=== PATIENT | male | born 2000 | race American Indian/Alaskan Native ===

== ENCOUNTER 2020-11-11 09:02 | Emergency (ER) | payer OTHER ==
--- NOTE | 2020-11-11 09:32 | XRay Report ---
CHEST 2 VIEWS INDICATION / CLINICAL INFORMATION: Chest Pain. COMPARISON: None available. FINDINGS: SUPPORT DEVICES: None. HEART / MEDIASTINUM: No significant abnormality. LUNGS / PLEURA: No significant pulmonary or pleural abnormality. No pneumothorax. ADDITIONAL FINDINGS: No significant additional findings. IMPRESSION: 1. No acute findings. Signer Name: Sukhdeep Jim MD Signed: 11/11/2020 9:28 AM Workstation Name: [id number]
--- NOTE | 2020-11-11 10:41 | Emergency Department Report ---
ED Chest Pain HPI - General Chief Complaint: Chest Pain Stated Complaint: CHEST PAIN Time Seen by Provider: 11/11/20 09:56 Source: patient Mode of arrival: Ambulatory Limitations: No Limitations - History of Present Illness Initial Comments: This is a 20-year-old male nontoxic, well nourished in appearance, no acute signs of distress presents to the ED with c/o of heart palpitations that occurred earlier today. Patient stated that while he was playing video games started to have heart palpitation. Patient denies any chest pain. Currently patient stated he is asymptomatic. Patient denies any upper respiratory symptoms. Patient denies any shortness of breath, hemoptysis, fever, chills, nausea, vomiting, headache, stiff neck, numbness, tingling, abdominal pain. Patient denies pleuritic chest pain. Patient denies any recent travels or long car rides. Patient denies any recent surgeries or any sick contacts. Patient denies any drug allergies or significant past medical history. -: This morning Pain Radiation: none Severity scale (0 -10): 0 Consistency: now resolved Improves With: nothing Worsens With: nothing re: denies: nausea, vomting, diaphoresis, dyspnea, sense of impending doom Other Symptoms: palpitations. denies: cough, fever, syncope, rash, acid taste in mouth, leg swelling, burping Treatments Prior to Arrival: none Aspirin use within the Past 7 Days: (0) No - Related Data Allergies Allergy/AdvReac Type Severity Reaction Status Date / Time No Known Allergies Allergy Unverified 11/11/20 09:06 Heart Score - HEART Score History: Slightly suspicious EKG: Normal Age: < 45 Risk factors: No known risk factors Troponin: < normal limit HEART Score: 0 ED Review of Systems ROS: Stated complaint: CHEST PAIN Other details as noted in HPI Comment: All other systems reviewed and negative Constitutional: denies: chills, fever Eyes: denies: eye pain, eye discharge, vision change ENT: denies: ear pain, throat pain Respiratory: denies: cough, shortness of breath, wheezing Cardiovascular: denies: chest pain, palpitations Endocrine: no symptoms reported Gastrointestinal: denies: abdominal pain, nausea, diarrhea Genitourinary: denies: urgency, dysuria Musculoskeletal: denies: back pain, joint swelling, arthralgia Skin: denies: rash, lesions Neurological: denies: headache, weakness, paresthesias Psychiatric: denies: anxiety, depression Hematological/Lymphatic: denies: easy bleeding, easy bruising ED Past Medical Hx - Past Medical History Previous Medical History?: No - Surgical History Past Surgical History?: No - Social History Smoking Status: Current Every Day Smoker Substance Use Type: Marijuana ED Physical Exam - General Limitations: No Limitations General appearance: alert, in no apparent distress - Head Head exam: Present: atraumatic, normocephalic - Eye Eye exam: Present: normal appearance - Neck Neck exam: Present: normal inspection, full ROM. Absent: tenderness, meningismus, lymphadenopathy - Respiratory Respiratory exam: Present: normal lung sounds bilaterally. Absent: respiratory distress, wheezes, rales, rhonchi, stridor, chest wall tenderness, accessory muscle use, decreased breath sounds, prolonged expiratory - Cardiovascular Cardiovascular Exam: Present: regular rate, normal rhythm, normal heart sounds. Absent: bradycardia, tachycardia, irregular rhythm, systolic murmur, diastolic murmur, rubs, gallop - GI/Abdominal GI/Abdominal exam: Present: soft, normal bowel sounds. Absent: distended, tenderness, guarding, rebound, rigid, diminished bowel sounds - Extremities Exam Extremities exam: Present: full ROM - Back Exam Back exam: Present: normal inspection, full ROM - Neurological Exam Neurological exam: Present: alert, oriented X3, normal gait - Psychiatric Psychiatric exam: Present: normal affect, normal mood - Skin Skin exam: Present: warm, dry, intact, normal color. Absent: rash ED Course Vital Signs 11/11/20 11/11/20 11/11/20 09:08 10:46 10:47 Temperature 98.8 F 98.7 F Pulse Rate 87 65 Respiratory 16 17 16 Rate Blood Pressure 140/76 Blood Pressure 104/56 [Left] O2 Sat by Pulse 100 100 100 Oximetry - Reevaluation(s) Reevaluation #1: 11/11/20 10:40 Patient is speaking in full sentences with no signs of distress noted. KETAN score - Ketan Score Age > 65: (0) No Aspirin use within the Past 7 Days: (0) No 3 or more CAD Risk Factors: (0) No 2 or more Angina events in past 24 hrs: (0) No Known CAD with more than 50% Stenosis: (0) No Elevated Cardiac Markers: (0) No ST Deviation Greater than 0.5mm: (0) No KETAN Score: 0 ED Medical Decision Making - Lab Data Result diagrams: 11/11/20 10:50 11/11/20 10:50 Lab Results 11/11/20 11/11/20 Range/Units 10:50 10:50 WBC 4.9 (4.5-11.0) K/mm3 RBC 5.76 H (3.65-5.03) M/mm3 Hgb 12.7 (11.8-15.2) gm/dl Hct 39.6 (35.5-45.6) % MCV 69 L (84-94) fl MCH 22 L (28-32) pg MCHC 32 (32-34) % RDW 14.2 (13.2-15.2) % Plt Count 280 (140-440) K/mm3 Lymph % (Auto) 33.4 (13.4-35.0) % Andrews % (Auto) 8.2 H (0.0-7.3) % Eos % (Auto) 1.1 (0.0-4.3) % Baso % (Auto) 0.8 (0.0-1.8) % Lymph # (Auto) 1.7 (1.2-5.4) K/mm3 Andrews # (Auto) 0.4 (0.0-0.8) K/mm3 Eos # (Auto) 0.1 (0.0-0.4) K/mm3 Baso # (Auto) 0.0 (0.0-0.1) K/mm3 Seg Neutrophils % 56.5 (40.0-70.0) % Seg Neutrophils # 2.8 (1.8-7.7) K/mm3 Sodium 138 (137-145) mmol/L Potassium 4.3 (3.6-5.0) mmol/L Chloride 102.2 (98-107) mmol/L Carbon Dioxide 27 (22-30) mmol/L Anion Gap 13 mmol/L BUN 18 (9-20) mg/dL Creatinine 1.2 (0.8-1.3) mg/dL Estimated GFR > 60 ml/min BUN/Creatinine Ratio 15 % Glucose 92 (75-100) mg/dL Calcium 9.2 (8.4-10.2) mg/dL Total Bilirubin 0.20 (0.1-1.2) mg/dL AST 26 (5-40) units/L ALT 36 (7-56) units/L Alkaline Phosphatase 42 (35-129) units/L Troponin T < 0.010 (0.00-0.029) ng/mL Total Protein 6.6 (6.3-8.2) g/dL Albumin 4.1 (3.9-5) g/dL Albumin/Globulin Ratio 1.6 % - EKG Data 11/11/20 10:40 Normal sinus rhythm at [address] or T wave abnormalities. Reviewed and signed by MD. - Radiology Data CHEST 2 VIEWS INDICATION / CLINICAL INFORMATION: Chest Pain. COMPARISON: None available. FINDINGS: SUPPORT DEVICES: None. HEART / MEDIASTINUM: No significant abnormality. LUNGS / PLEURA: No significant pulmonary or pleural abnormality. No pneumothorax. ADDITIONAL FINDINGS: No significant additional findings. IMPRESSION: 1. No acute findings. Signer Name: Sukhdeep Jim MD Signed: 11/11/2020 8:28 AM Workstation Name: [id number] - Medical Decision Making This is a 20-year-old male that presents with heart palpitation most likely secondary to anxiety. Patient is stable and was examined by me. KETAN and HEART score 0 pints. PERC score for DVT/SVT/PE 0 points. EKG normal sinus rhythm with no significant changes in ST. Chest xray dictated by the radiologist. PAtient is notified of the Xray report with no questions noted. Labs within normal limits. Negative troponin. Patient was instructed to Follow-up with a primary care/supervisor felling bucking doctor in 2 days or if symptoms worsen and continue return to emergency room as soon as possible. At time of discharge, the patient does not seem toxic or ill in appearance. No acute signs of distress noted. Patient agrees to discharge treatment plan of care. No further questions noted by the patient. Critical care attestation.: If time is entered above; I have spent that time in minutes in the direct care of this critically ill patient, excluding procedure time. ED Disposition Clinical Impression: Anxiety, Heart palpitations Disposition: DC-01 TO HOME OR SELFCARE Is pt being admited?: No Does the pt Need Aspirin: No Condition: Stable Instructions: Managing Anxiety, Adult Additional Instructions: Follow-up with a primary care/supervisor felling bucking doctor in 2 days or if symptoms worsen and continue return to emergency room as soon as possible Referrals: KARUNA QUINTANA [Other] - 3-5 Days PRIMARY CAREMD [Referring] - 3-5 Days ALIA MIRANDA MD [Staff Physician] - 3-5 Days LINDA TRAVIS MD [Staff Physician] - 2-3 Days Time of Disposition: 12:10
[2020-11-11 11:34] LABS: Basophils % (Auto) 0.8 % (0.0-1.8); Eosinophils # (Auto) 0.1 K/mm3 (0.0-0.4); Eosinophils % (Auto) 1.1 % (0.0-4.3); Hematocrit 39.6 % (35.5-45.6); Hemoglobin 12.7 gm/dl (11.8-15.2); Lymphocytes # (Auto) 1.7 K/mm3 (1.2-5.4); Lymphocytes % (Auto) 33.4 % (13.4-35.0); Mean Corpuscular HGB Conc 32 % (32-34); Monocytes # (Auto) 0.4 K/mm3 (0.0-0.8); Monocytes % (Auto) 8.2 % (0.0-7.3); Platelet Count 280 K/mm3 (140-440); Red Blood Count 5.76 M/mm3 (3.65-5.03); Red Cell Distribution Width 14.2 % (13.2-15.2)
[2020-11-11 11:38] LABS: Mean Corpuscular Volume 69 fl (84-94)
[2020-11-11 12:02] LABS: Alanine Aminotransferase 36 units/L (7-56); Albumin 4.1 g/dL (3.9-5); BUN/Creatinine Ratio 15; Blood Urea Nitrogen 18 mg/dL (9-20); Calcium 9.2 mg/dL (8.4-10.2); Hemolysis Index 3
[2020-11-11 13:22] VITALS: BP 118/59
== END 2020-11-11 13:03 | disposition home or self-care (01) ==
LOC: ED 09:02
DX: F41.9 Anxiety disorder, unspecified (principal); R00.2 Palpitations; F17.200 Nicotine dependence, unspecified, uncomplicated; F12.10 Cannabis abuse, uncomplicated
CPT/HCPCS: 36415; 71046; 80053; 84484; 85025; 93005

== ENCOUNTER 2022-02-21 19:03 | Emergency (ER) | payer OTHER ==
[2022-02-22] MEDS ORDERED: ALPRAZolam 0.5 MG TAB PO ONE (02:33)
[2022-02-22 03:01] VITALS: BP 124/78
--- NOTE | 2022-02-22 03:01 | Emergency Department Report ---
ED Anxiety HPI - General Chief Complaint: Anxiety Stated Complaint: CHEST PROBLEMS/BREATHING Time Seen by Provider: 02/21/22 23:56 Source: patient Mode of arrival: Ambulatory - History of Present Illness Initial Comments: 21-year-old male with no significant past medical history presents to the emergency department complaining of what he feels is in his anxiety. States over the last several weeks has been having some issues sleeping due to to him waking up spontaneously feeling short of breath of an unknown etiology. Does admit to snoring but does not know if he pauses in his sleep but does experience some nonrestorative rest and time to time. Nonetheless he has been having some anxiety around the time bedtime and subsequently has been having difficulty getting to sleep and these last for few weeks and is seeking some assistance with the issue he has not tried any [id number] sleeping aids or no help to talk to a therapist or PCP about obtaining a sleep study reports no fever, chills, sweats. No nausea, no vomiting, no palpitations, no hemoptysis no hematemesis hematochezia he reports no smoking -: Gradual, week(s) Place: home Previous History of Same: No Severity: mild, moderate Quality: constant Improves With: nothing Worsens With: nothing Associated symptoms: denies: shortness of breath, diaphoresis, headaches, anorexia, seizure, weakness - Related Data Home Medications: Previous Rx's Medication Instructions Recorded Last Taken Type Melatonin [Melatonin 10MG TAB] 10 mg PO QHS #20 02/22/22 Unknown Rx Allergies/Adverse Reactions: Allergies Allergy/AdvReac Type Severity Reaction Status Date / Time No Known Allergies Allergy Unverified 11/11/20 09:06 ED Review of Systems ROS: Stated complaint: CHEST PROBLEMS/BREATHING Other details as noted in HPI ED Past Medical Hx - Past Medical History Previous Medical History?: No - Surgical History Past Surgical History?: No - Social History Smoking Status: Never Smoker Substance Use Type: None - Medications Home Medications: Home Medications Medication Instructions Recorded Confirmed Last Taken Type Melatonin [Melatonin 10MG TAB] 10 mg PO QHS #20 02/22/22 Unknown Rx ED Physical Exam - General Limitations: No Limitations ED Course Vital Signs 02/21/22 19:12 Temperature 98.7 F Pulse Rate 58 L Respiratory 18 Rate Blood Pressure 132/76 O2 Sat by Pulse 98 Oximetry ED Medical Decision Making - Medical Decision Making This patient presents with symptoms consistent with acute anxiety reaction/panic attack. Also suspicion for sleep apnea low suspicion for acute coronary process including ACS, pulmonary embolism, thoracic aortic dissection. Denies any ingestions or any other medical complaints. No evidence of alcohol withdrawal symptoms. Presentation not consistent with overt toxic syndrome, ingestion given history and physical. Presentation not consistent with organic or medical emergency at this time. No acute indication for psychiatric consultation. Cautious return precautions discussed with full understanding Plan: Medication, psych follow-up PRN Critical care attestation.: If time is entered above; I have spent that time in minutes in the direct care of this critically ill patient, excluding procedure time. ED Disposition Clinical Impression: Anxiety, Insomnia Disposition: HOME / SELF CARE / HOMELESS Is pt being admited?: No Does the pt Need Aspirin: No Condition: Stable Instructions: Information About Deep Brain Stimulation, Insomnia, Supporting Someone With Anxiety Prescriptions: Melatonin [Melatonin 10MG TAB] 10 mg PO QHS #20 Referrals: ALIA MIRANDA MD [Primary Care Provider] - 3-5 Days
== END 2022-02-22 03:05 | disposition home or self-care (01) ==
LOC: ED 19:03
DX: F41.9 Anxiety disorder, unspecified (principal); G47.00 Insomnia, unspecified
CPT/HCPCS: 99282